=== PATIENT | female | born 1995 | race Caucasian/White ===

== ENCOUNTER 2024-06-08 21:53 | Emergency (ER) | payer BC ==
[2024-06-08] MEDS: Lidocaine 1% 10 ML MDV INJECT ONE (23:06)
[2024-06-08] MEDS: Lidocaine/Epineph/Tetracaine 3 ML Syringe TOP ONE (23:06)
== END 2024-06-09 00:10 | disposition home or self-care (01) ==
LOC: JD.ED 21:53
DX: S81.812A Laceration without foreign body, left lower leg, initial encounter (principal); W01.198A Fall on same level from slipping, tripping and stumbling with subsequent striking against other object, initial encounter; Y93.01 Activity, walking, marching and hiking
CPT/HCPCS: 12002; 99282; 99283; A9270-GY; J3490